=== PATIENT | female | born 1960 | race Caucasian/White ===

== ENCOUNTER 2024-04-05 09:10 | Emergency (ER) | payer SELFPAY ==
[~2024-04-05] VITALS: Ht 162.6 cm; Wt 81.6 kg
[2024-04-05] MEDS ORDERED: CLINDAMYCIN 600 MG PIGGYBACK**ER OMNI IV ONE (10:42)
[2024-04-05 10:50] LABS: BASOPHILS # (AUTO) 0.1 K/UL (0.0-0.2); BASOPHILS % (AUTO) 1.2 % (0.0-2.0); EOSINOPHILS # (AUTO) 0.2 K/uL (0.0-0.7); EOSINOPHILS % (AUTO) 1.6 % (0.0-7.0); HEMATOCRIT 41.6 % (31.2-41.9); HEMOGLOBIN 13.9 g/dL (10.9-14.3); LYMPHOCYTES # (AUTO) 1.5 K/uL (0.8-4.8); LYMPHOCYTES % (AUTO) 13.4 % (20.5-51.5); MEAN CORPUSCULAR HEMOGLOBIN 28.4 uug (24.7-32.8); MEAN CORPUSCULAR HGB CONC 33 g/dL (32.3-35.6); MEAN CORPUSCULAR VOLUME 85.2 fL (75.5-95.3); MONOCYTES # (AUTO) 0.9 K/uL (0.1-1.30); MONOCYTES % (AUTO) 7.9 % (0.0-11.0); NEUTROPHILS # (AUTO) 8.5 K/uL (1.8-8.9); NEUTROPHILS % (AUTO) 75.9 % (38.5-71.5); PLATELET COUNT (AUTO) 448 K/uL (179-408); RED BLOOD CELL COUNT(AUTO) 4.89 MIL/uL (3.63-4.92); RED CELL DISTRIBUTION WIDTH 13.4 % (12.3-17.7); WHITE BLOOD COUNT (AUTO) 11.2 K/uL (3.8-11.8)
[2024-04-05] MEDS: IV NS 1000 ML 1,000 ML IV ONE (11:38)
[2024-04-05] MEDS: CLINDAMYCIN PHOSPHATE IV 600 MG in IV DEXTROSE 5% 100 ML IV ONE (11:38)
[2024-04-05] MEDS ORDERED: KETOROLAC TROMETHAMINE 30 MG INJ ONE (11:39)
[2024-04-05] MEDS: KETOROLAC TROMETHAMINE 30 MG INJ IVP ONE (11:42)
[2024-04-05 11:49] LABS: ALBUMIN 4.1 g/dL (3.4-5.0); BILIRUBIN,TOTAL 1.8 mg/dL (0.2-1.0); CALCIUM 10.3 mg/dL (8.5-10.1); CREATININE 0.9 mg/dL (0.6-1.3); POTASSIUM 3.6 mmol/L (3.5-5.1); TOTAL PROTEIN, SERUM 7.3 g/dL (6.4-8.2)
[2024-04-05] MEDS ORDERED: CLIN-118 PO (12:00)
[2024-04-05] MEDS ORDERED: CEPH500T PO (12:00)
[2024-04-05 12:11] LABS: DIFFERENTIAL COMMENT 1
[2024-04-05 12:23] VITALS: BP 125/83; TEMP 98.2; O2SAT 96
== END 2024-04-05 12:24 | disposition home or self-care (01) ==
LOC: ER 09:10
DX: L03.012 Cellulitis of left finger (principal); Z79.899 Other long term (current) drug therapy; Z88.1 Allergy status to other antibiotic agents; W55.01XA Bitten by cat, initial encounter; Y93.89 Activity, other specified; Y92.89 Other specified places as the place of occurrence of the external cause; Y99.8 Other external cause status
CPT/HCPCS: 99284; 96374; 96375; 80053; 83036; 85025; 87040 ×2; 84484; 36415; 73130; 83605; J3490 ×2; J1885; A4606; A4663

== ENCOUNTER 2024-04-06 17:01 | Inpatient (IN) | payer OTHER ==
[~2024-04-06] VITALS: Ht 162.6 cm; Wt 90.7 kg
[~2024-04-06 17:01] MED LIST: CEPH500T PO; CLIN-118 PO
[2024-04-06] MEDS ORDERED: LIDOCAINE HCL 1% 20 ML VIAL ONE (17:40)
[2024-04-06 17:43] LABS: BASOPHILS # (AUTO) 0.3 K/UL (0.0-0.2); BASOPHILS % (AUTO) 2.2 % (0.0-2.0); EOSINOPHILS # (AUTO) 0.2 K/uL (0.0-0.7); EOSINOPHILS % (AUTO) 1.3 % (0.0-7.0); HEMATOCRIT 39.4 % (31.2-41.9); HEMOGLOBIN 13.1 g/dL (10.9-14.3); LYMPHOCYTES # (AUTO) 1.6 K/uL (0.8-4.8); LYMPHOCYTES % (AUTO) 14.1 % (20.5-51.5); MEAN CORPUSCULAR HEMOGLOBIN 28.3 uug (24.7-32.8); MEAN CORPUSCULAR HGB CONC 33 g/dL (32.3-35.6); MEAN CORPUSCULAR VOLUME 85.1 fL (75.5-95.3); MONOCYTES # (AUTO) 0.7 K/uL (0.1-1.30); MONOCYTES % (AUTO) 6.1 % (0.0-11.0); NEUTROPHILS # (AUTO) 8.7 K/uL (1.8-8.9); NEUTROPHILS % (AUTO) 76.3 % (38.5-71.5); PLATELET COUNT (AUTO) 429 K/uL (179-408); RED BLOOD CELL COUNT(AUTO) 4.62 MIL/uL (3.63-4.92); RED CELL DISTRIBUTION WIDTH 13.4 % (12.3-17.7); WHITE BLOOD COUNT (AUTO) 11.4 K/uL (3.8-11.8)
[2024-04-06 17:44] LABS: DIFFERENTIAL COMMENT 1
[2024-04-06] MEDS: LIDOCAINE HCL 1% 20 ML VIAL IJ ONE (17:45)
[2024-04-06] MEDS: NEOMY/BACITRA/POLYMYXIN B OINT UD PACKET TP ONE (17:45)
[2024-04-06 17:49] LABS: CALCIUM 9.8 mg/dL (8.5-10.1); POTASSIUM 3.4 mmol/L (3.5-5.1)
[2024-04-06] MEDS ORDERED: PIPERACILLIN/TAZOBACTAM/D5W 50 ML IV ONE (17:50)
[2024-04-06 17:55] LABS: ALBUMIN 3.8 g/dL (3.4-5.0); BILIRUBIN,DIRECT 0.2 mg/dL (0.0-0.2); BILIRUBIN,TOTAL 1.2 mg/dL (0.2-1.0); TOTAL PROTEIN, SERUM 7.1 g/dL (6.4-8.2)
[2024-04-06] MEDS: IV NORMAL SALINE 1000 ML BAG IV ONE (18:01)
[2024-04-06] MEDS: PIPERACILLIN SODIUM/TAZOBACTAM 3.375 G in IV DEXTROSE 5% 50 ML IV ONE (18:02)
[2024-04-06] MEDS: MORPHINE SULFATE 4 MG/1 ML DISP.SYRIN IV ONE (18:07)
[2024-04-06] MEDS: ONDANSETRON 4 MG/2 ML VIAL IV ONE (18:07)
[2024-04-06] MEDS ORDERED: REMEDY ESSENTIAL ZINC PASTE 113 GM TP PRN (18:15)
[2024-04-06] MEDS ORDERED: ONDANSETRON INJ 8 MG in IV NORMAL SALINE 50 ML IV PRN (18:15)
[2024-04-06] MEDS ORDERED: ACETAMINOPHEN 325 MG TABLET PO PRN (18:15)
[2024-04-06] MEDS ORDERED: ONDANSETRON 4 MG/2 ML VIAL IV PRN (18:15)
[2024-04-06] MEDS ORDERED: IOHEXOL 300MG/ML 100 ML INFUS..BTL ONE (19:28)
[2024-04-06] MEDS ORDERED: IV NORMAL SALINE 250 ML IV ONE (19:28)
[2024-04-06] MEDS ORDERED: SWABABLE VALVE TRANSFER SET EA MC ONE (19:28)
[2024-04-06 21:29] VITALS: BP 120/67; TEMP 98.3; O2SAT 92
[2024-04-06] MEDS: MORPHINE SULFATE 2 MG/1 ML DISP.SYRIN IV PRN (22:06)
[2024-04-07] MEDS ORDERED: PIPERACILLIN SODIUM/TAZOBACTAM 3.375 G in IV DEXTROSE 5% 50 ML IV SCH
[2024-04-07] MEDS ORDERED: PIPERACILLIN SODIUM/TAZO 3.375 GM VIAL ONE ×2 (00:47→05:34)
[2024-04-07] MEDS: PIPERACILLIN SODIUM/TAZOBACTAM 3.375 G in IV DEXTROSE 5% 100 ML IV SCH ×2 (01:25→23:00)
[2024-04-07] MEDS ORDERED: INSU3INS6 SQ (10:23)
[2024-04-07] MEDS ORDERED: LOSA1TAB39 PO (10:23)
[2024-04-07] MEDS ORDERED: ATOR80TA PO (10:23)
[2024-04-07] MEDS ORDERED: METF-442 PO (10:23)
[2024-04-07] MEDS ORDERED: GLIP5TAB13 PO (10:23)
[2024-04-07] MEDS ORDERED: DULO30CA2 PO (10:36)
[2024-04-07] MEDS ORDERED: GABA300C PO (10:36)
[2024-04-07] MEDS: HYDROCODONE/APAP 5-325MG TABLET PO PRN (12:44)
[2024-04-07] MEDS: PIPERACILLIN SODIUM/TAZOBACTAM 3.375 G in IV DEXTROSE 5% 100 ML IV ONE (13:23)
[2024-04-07] MEDS ORDERED: DEXTROSE 50% 50 ML DISP.SYRIN IV PRN (13:45)
[2024-04-07 15:00] VITALS: BP 92/35; TEMP 98; O2SAT 98
[2024-04-07 15:12] LABS: BASOPHILS % (AUTO) 0.3 % (0.0-2.0); EOSINOPHILS # (AUTO) 0.2 K/uL (0.0-0.7); EOSINOPHILS % (AUTO) 3.4 % (0.0-7.0); HEMATOCRIT 37.7 % (31.2-41.9); HEMOGLOBIN 12.6 g/dL (10.9-14.3); LYMPHOCYTES # (AUTO) 1.2 K/uL (0.8-4.8); MEAN CORPUSCULAR HEMOGLOBIN 28.9 uug (24.7-32.8); MEAN CORPUSCULAR HGB CONC 33 g/dL (32.3-35.6); MEAN CORPUSCULAR VOLUME 86.4 fL (75.5-95.3); MONOCYTES # (AUTO) 0.7 K/uL (0.1-1.30); MONOCYTES % (AUTO) 11.1 % (0.0-11.0); NEUTROPHILS # (AUTO) 4.3 K/uL (1.8-8.9); NEUTROPHILS % (AUTO) 66.2 % (38.5-71.5); PLATELET COUNT (AUTO) 352 K/uL (179-408); RED BLOOD CELL COUNT(AUTO) 4.37 MIL/uL (3.63-4.92); RED CELL DISTRIBUTION WIDTH 13.4 % (12.3-17.7); WHITE BLOOD COUNT (AUTO) 6.5 K/uL (3.8-11.8)
[2024-04-07 15:15] LABS: DIFFERENTIAL COMMENT 1
[2024-04-07 15:28] LABS: CALCIUM 9.2 mg/dL (8.5-10.1); CREATININE 0.9 mg/dL (0.6-1.3); MAGNESIUM 1.7 mg/dL (1.8-2.4); PHOSPHOROUS 3.3 mg/dL (2.5-4.9); POTASSIUM 3.9 mmol/L (3.5-5.1)
[2024-04-07] MEDS: BLOOD SUGAR DIAGNOSTIC 1 EACH STRIP VI SCH (16:29)
[2024-04-07] MEDS: GABAPENTIN 300 MG CAPSULE PO SCH (16:31)
[2024-04-07] MEDS: INSULIN REGULAR, HUMAN 300 UNIT/3 ML VIAL SQ PRN (16:33)
[2024-04-07] MEDS ORDERED: VANCOMYCIN IV 1,000 MG in IV DEXTROSE 5% 250 ML IV SCH (19:30)
[2024-04-07 20:37] VITALS: BP 122/60; TEMP 98.4; O2SAT 97
[2024-04-07] MEDS ORDERED: VANCOMYCIN IV 200 ML ONE (20:41)
[2024-04-07] MEDS: MAGNESIUM HYDROXIDE 30 ML LIQUID UDC PO PRN (20:42)
[2024-04-07] MEDS: ATORVASTATIN 40 MG TABLET PO SCH (20:42)
[2024-04-07] MEDS: VANCOMYCIN IV 1,000 MG in IV DEXTROSE 5% 250 ML IV ONE (20:57)
[2024-04-07] MEDS: INSULIN REGULAR, HUMAN 300 UNITS/3 ML VIAL SQ PRN (21:07)
[2024-04-08] MEDS: BENZOCAINE/MENTH/CETYLPYRD LOZENGE MM PRN (00:07)
[2024-04-08 06:13] VITALS: BP 131/63; TEMP 98.2; O2SAT 95
[2024-04-08 06:40] LABS: BASOPHILS % (AUTO) 0.5 % (0.0-2.0); EOSINOPHILS # (AUTO) 0.3 K/uL (0.0-0.7); EOSINOPHILS % (AUTO) 5.2 % (0.0-7.0); HEMATOCRIT 37.5 % (31.2-41.9); HEMOGLOBIN 12.8 g/dL (10.9-14.3); LYMPHOCYTES # (AUTO) 1.2 K/uL (0.8-4.8); LYMPHOCYTES % (AUTO) 19.1 % (20.5-51.5); MEAN CORPUSCULAR HEMOGLOBIN 29.2 uug (24.7-32.8); MEAN CORPUSCULAR HGB CONC 34 g/dL (32.3-35.6); MEAN CORPUSCULAR VOLUME 85.6 fL (75.5-95.3); MONOCYTES # (AUTO) 0.8 K/uL (0.1-1.30); MONOCYTES % (AUTO) 12.8 % (0.0-11.0); NEUTROPHILS % (AUTO) 62.4 % (38.5-71.5); PLATELET COUNT (AUTO) 370 K/uL (179-408); RED BLOOD CELL COUNT(AUTO) 4.38 MIL/uL (3.63-4.92); WHITE BLOOD COUNT (AUTO) 6.4 K/uL (3.8-11.8)
[2024-04-08 06:51] LABS: DIFFERENTIAL COMMENT 1
[2024-04-08 06:59] LABS: CALCIUM 9.7 mg/dL (8.5-10.1); CREATININE 0.9 mg/dL (0.6-1.3); MAGNESIUM 1.9 mg/dL (1.8-2.4); PHOSPHOROUS 2.8 mg/dL (2.5-4.9)
[2024-04-08] MEDS: LOSARTAN POTASSIUM 50 MG TABLET PO SCH (08:35)
[2024-04-08] MEDS: HYDROCHLOROTHIAZIDE 25 MG TABLET PO SCH ×2 (08:36→09:14)
[2024-04-08] MEDS: DULOXETINE 30 MG CAPSULE.DR PO SCH (08:36)
[2024-04-08] MEDS ORDERED: Medication Not On Formulary EA (Losartan/Hydrochlorothiazide (Losartan-Hctz 100-25 Mg Ta PO SCH (09:00)
[2024-04-08] MEDS: VANCOMYCIN IV 1,000 MG in IV DEXTROSE 5% 250 ML IV SCH (09:31)
[2024-04-08] MEDS ORDERED: SWABABLE VALVE TRANSFER SET EA MC ONE (11:12)
[2024-04-08] MEDS ORDERED: IOHEXOL 300MG/ML 100 ML INFUS..BTL ONE (11:12)
[2024-04-08] MEDS ORDERED: IV NORMAL SALINE 250 ML IV ONE (11:13)
[2024-04-08 12:00] VITALS: BP 135/50; TEMP 98.7; O2SAT 98
[2024-04-08] MEDS: BISACODYL 10 MG SUPP.RECT RC ONE ×2 (15:15→16:35)
[2024-04-08 16:22] VITALS: BP 128/66; TEMP 99.2; O2SAT 94
[2024-04-08] MEDS: DOCUSATE SODIUM 100 MG CAPSULE PO SCH (16:31)
[2024-04-08 20:00] VITALS: BP 118/64; TEMP 98.9; O2SAT 93
[2024-04-09 06:59] LABS: BASOPHILS % (AUTO) 0.8 % (0.0-2.0); EOSINOPHILS # (AUTO) 0.4 K/uL (0.0-0.7); EOSINOPHILS % (AUTO) 6.6 % (0.0-7.0); HEMATOCRIT 38.8 % (31.2-41.9); HEMOGLOBIN 13.2 g/dL (10.9-14.3); LYMPHOCYTES # (AUTO) 1.4 K/uL (0.8-4.8); LYMPHOCYTES % (AUTO) 25.3 % (20.5-51.5); MEAN CORPUSCULAR HEMOGLOBIN 29.2 uug (24.7-32.8); MEAN CORPUSCULAR HGB CONC 34 g/dL (32.3-35.6); MEAN CORPUSCULAR VOLUME 85.8 fL (75.5-95.3); MONOCYTES # (AUTO) 0.7 K/uL (0.1-1.30); MONOCYTES % (AUTO) 11.9 % (0.0-11.0); NEUTROPHILS # (AUTO) 3.1 K/uL (1.8-8.9); NEUTROPHILS % (AUTO) 55.4 % (38.5-71.5); PLATELET COUNT (AUTO) 374 K/uL (179-408); RED BLOOD CELL COUNT(AUTO) 4.52 MIL/uL (3.63-4.92); RED CELL DISTRIBUTION WIDTH 13.2 % (12.3-17.7); WHITE BLOOD COUNT (AUTO) 5.7 K/uL (3.8-11.8)
[2024-04-09 07:10] LABS: DIFFERENTIAL COMMENT 1
[2024-04-09 07:18] LABS: CALCIUM 9.9 mg/dL (8.5-10.1); CREATININE 0.9 mg/dL (0.6-1.3); PHOSPHOROUS 3.2 mg/dL (2.5-4.9); POTASSIUM 3.5 mmol/L (3.5-5.1)
[2024-04-09] MEDS: VANCOMYCIN IV 1,000 MG in IV DEXTROSE 5% 250 ML IV SCH (10:05)
[2024-04-09 11:47] VITALS: BP 127/66; TEMP 98.4; O2SAT 96
[2024-04-09] MEDS: PROTEIN SUPPLEMENT (PROSTAT) 30 ML LIQUID PO SCH (12:30)
[2024-04-09 15:46] VITALS: BP 130/56; TEMP 98.3; O2SAT 96
[2024-04-09 20:11] VITALS: BP 114/50; TEMP 98.2; O2SAT 92
[2024-04-09] MEDS ORDERED: VANCOMYCIN IV 1,000 MG in IV DEXTROSE 5% 250 ML IV SCH (21:00)
[2024-04-10 04:55] VITALS: BP 111/62; TEMP 97.7; O2SAT 97
[2024-04-10] MEDS: SULFAMETH/TRIMETH 800/160 MG TABLET PO SCH (11:59)
[2024-04-10 12:00] VITALS: BP 104/55; TEMP 97.8; O2SAT 95
[2024-04-10] MEDS: CIPROFLOXACIN HCL 250 MG TABLET PO SCH (12:00)
[2024-04-10 16:13] VITALS: BP 129/61; TEMP 98.6; O2SAT 95
[2024-04-11 07:25] LABS: BASOPHILS % (AUTO) 0.5 % (0.0-2.0); EOSINOPHILS # (AUTO) 0.4 K/uL (0.0-0.7); EOSINOPHILS % (AUTO) 6.6 % (0.0-7.0); HEMATOCRIT 40.8 % (31.2-41.9); HEMOGLOBIN 13.7 g/dL (10.9-14.3); LYMPHOCYTES # (AUTO) 1.5 K/uL (0.8-4.8); LYMPHOCYTES % (AUTO) 24.3 % (20.5-51.5); MEAN CORPUSCULAR HEMOGLOBIN 28.3 uug (24.7-32.8); MEAN CORPUSCULAR HGB CONC 34 g/dL (32.3-35.6); MEAN CORPUSCULAR VOLUME 84.3 fL (75.5-95.3); MONOCYTES # (AUTO) 0.8 K/uL (0.1-1.30); MONOCYTES % (AUTO) 12.3 % (0.0-11.0); NEUTROPHILS # (AUTO) 3.5 K/uL (1.8-8.9); NEUTROPHILS % (AUTO) 56.3 % (38.5-71.5); PLATELET COUNT (AUTO) 384 K/uL (179-408); RED BLOOD CELL COUNT(AUTO) 4.84 MIL/uL (3.63-4.92); RED CELL DISTRIBUTION WIDTH 13.2 % (12.3-17.7); WHITE BLOOD COUNT (AUTO) 6.1 K/uL (3.8-11.8)
[2024-04-11 07:37] LABS: CALCIUM 9.8 mg/dL (8.5-10.1); MAGNESIUM 1.9 mg/dL (1.8-2.4); PHOSPHOROUS 3.2 mg/dL (2.5-4.9); POTASSIUM 3.6 mmol/L (3.5-5.1)
[2024-04-11 07:39] LABS: DIFFERENTIAL COMMENT 1
[2024-04-11] MEDS: BISACODYL 10 MG SUPP.RECT RC ONE (10:38)
[2024-04-11] MEDS ORDERED: CIPR250T4 PO (11:37)
[2024-04-11] MEDS ORDERED: SULF1TAB48 PO (11:37)
[2024-04-11 12:00] VITALS: BP 159/88; TEMP 98.2; O2SAT 95
== END 2024-04-11 13:00 | disposition home or self-care (01) | DRG 603 ==
LOC: ER 17:02 → MEDSURG3 20:29
PROVIDERS: ADMIT Student in an Organized Health Care Education/Training Program; ATTEND Student in an Organized Health Care Education/Training Program
PROC: 0J9K0ZZ Drainage of Left Hand Subcutaneous Tissue and Fascia, Open Approach (ICD-10-PCS; principal; 2024-04-06)
DX: L02.512 Cutaneous abscess of left hand (principal); R17 Unspecified jaundice; L03.012 Cellulitis of left finger; S61.233A Puncture wound without foreign body of left middle finger without damage to nail, initial encounter; W55.01XA Bitten by cat, initial encounter; Y92.89 Other specified places as the place of occurrence of the external cause; E87.6 Hypokalemia; Z87.09 Personal history of other diseases of the respiratory system; E78.5 Hyperlipidemia, unspecified; E27.9 Disorder of adrenal gland, unspecified; E11.9 Type 2 diabetes mellitus without complications; D75.839 Thrombocytosis, unspecified; R91.1 Solitary pulmonary nodule; M18.9 Osteoarthritis of first carpometacarpal joint, unspecified; K80.20 Calculus of gallbladder without cholecystitis without obstruction; Z87.891 Personal history of nicotine dependence; Z79.84 Long term (current) use of oral hypoglycemic drugs; Z79.899 Other long term (current) drug therapy; Z79.4 Long term (current) use of insulin; G89.29 Other chronic pain
CPT/HCPCS: 36415; 71045; 71260; 82378; 83605; 83735; 84100; 85025; 85610; 85730; 87040; 93005; A4663; G0378; J1815; J2270; J2405; J2543; J3370; J3490; J7040; J7050; Q9967